=== PATIENT | female | born 2005 | race Two or more races ===

== ENCOUNTER 2024-04-05 17:36 | Emergency (ER) | payer MEDICAID, SELFPAY ==
[2024-04-05 17:37] VITALS: BMI 29.2
[2024-04-05 17:50] VITALS: BP 111/73; PULSE 98; RESP 18; TEMP 36.9; O2SAT 99
--- NOTE | 2024-04-05 18:10 | XR_ITS ---
Examination: PA lateral chest 2 views Technique: Upright PA lateral chest 2 views Exam date and time: April 05, 2024 1822 hrs. Indications: Left-sided chest pain beginning 2 weeks ago. Findings: Normal heart size No pneumonia or pulmonary edema. The osseous structures are intact Impression: No active disease
--- NOTE | 2024-04-05 18:10 | EDNOTE_ITS ---
Upper Respiratory Inf. RME/HPI General Chief Complaint: Flu Like Symptoms Stated Complaint: CONGESTION & GENERALIZED BODY ACHES X3 DAYS Time Seen by Provider: 04/05/24 18:03 Source: patient Arrival date/time: 04/05/24 17:36 18-year-old female no past medical history other than allergies to penicillins presents emergency department complaining of nasal congestion, cough, sore throat, and generalized bodyaches that actually have been ongoing for over a week. Mode of arrival: ambulatory Limitations: no limitations Related Data Previous Rx's ?Medication ?Instructions ?Recorded naproxen 500 mg tablet (Naprosyn) 500 mg PO BID PRN pa in #30 tabs 01/16/22 ibuprofen 600 mg tablet 600 mg PO Q8H PRN pain #20 t abs 04/05/24 Allergies Allergy/AdvReac Type Severity Reaction Status Date / Time No Known Allergies Allergy Verified 04/05/24 17:40 Review of Systems Review of Systems Systems Reviewed: All systems reviewed, normal except as documented Constitutional Constitutional: Reports system reviewed and no additional complaints, except as documented, Reports body ache(s), Denies chills and Denies fever(s) Eyes Eyes: Reports system reviewed and no additional complaints, except as documented and Denies change in vision ENT Ears, Nose, Mouth, and Throat: Reports system reviewed and no additional complaints, except as documented, Denies disequilibrium, Denies dizziness, Reports nasal congestion, Reports sore throat and Denies vertigo Cardiovascular Cardiovascular: Reports system reviewed and no additional complaints, except as documented, Denies chest pain and Denies dyspnea Respiratory Respiratory: Reports system reviewed and no additional complaints, except as documented, Denies chest congestion, Reports cough and Denies dyspnea Gastrointestinal Gastrointestinal: Reports system reviewed and no additional complaints, except as documented, Denies abdominal pain, Denies nausea and Denies vomiting Musculoskeletal Musculoskeletal: Reports system reviewed and no additional complaints, except as documented, Denies abnormal gait and Denies arthralgias Integumentary/Breasts Skin/Breast: Reports system reviewed and no additional complaints, except as documented, Denies erythema, Denies rash and Denies wounds Neurologic Neurologic: Reports system reviewed and no additional complaints, except as documented, Denies abnormal gait, Denies disequilibrium, Denies dizziness and Denies vertigo Past Medical History Social History SMOKING STATUS: Never smoker ED Exam General Limitations: Present no limitations General appearance: Present alert and in no apparent distress Head Head exam: Present atraumatic Eye Eye exam: Present normal appearance, PERRL and EOMI ENT ENT exam: Present normal exam, normal oropharynx and mucous membranes moist Expanded ENT Exam Throat exam: Present tonsillar erythema; Absent tonsillomegaly, tonsillar exudate or muffled voice Neck Neck exam: Present normal inspection, full ROM and trachea midline Chest Chest inspection: Present normal inspection and symmetric chest wall rise Respiratory Respiratory exam: Present normal lung sounds bilaterally Cardiovascular Cardiovascular exam: Present regular rate, normal rhythm and normal heart sounds Abdominal Exam Abdominal exam: Present soft and normal bowel sounds Extremities Exam Extremities exam: Present normal inspection and full ROM Back Exam Back exam: Present normal inspection and full ROM Neurological Exam Neurological exam: Present alert, oriented X3 and CN II-XII intact Psychiatric Psychiatric exam: Present normal affect and normal mood Skin Skin exam: Present warm, dry, intact and normal color Course Quality Measures none Orders Category Date Time Status Bedside Influenza A&B Antigen Test NOW Care 04/05/24 18:10 Completed XR chest 2V Stat Exams 04/05/24 18:10 Completed Strep A Rapid Stat Lab 04/05/24 18:15 Completed Vital Signs Vital signs: Vital Signs Temperature 98.5 F 04/05/24 17:50 Pulse Rate 98 04/05/24 17:50 Respiratory Rate 18 04/05/24 17:50 Blood Pressure 111/73 04/05/24 17:50 Pulse Oximetry (%) 99 04/05/24 17:50 Oxygen Delivery Method Room Air 04/05/24 17:50 99% room air within normal limits Upper Respiratory Infection MDM Narrative MDM Narrative:: 18-year-old female no past medical history other than allergies to penicillins presents emergency department complaining of nasal congestion, cough, sore throat, and generalized bodyaches that actually have been ongoing for over a week. Patient appears nontoxic and is hemodynamically stable. Chest x-ray was unremarkable for any pneumonic infiltrates. Strep and influenza swabs negative. Patient abdomen is soft and nontender. Patient likely has viral infection. Patient stable for discharge. Patient data External records reviewed:: [facility] previous records Clinical information provided by:: patient Social determinants that could affect healthcare access:: none Patient has the following chronic illnesses:: None How is presenting disease/condition affected by chronic disease/condition?: no chronic disease Evaluation data The following diagnostics were reviewed and interpreted by me:: lab results and radiology exam(s) Lab and/or radiology exams considered but not ordered:: Ordered Interpretation Summary: Interpreted by me Medications / Prescriptions Medications or Prescriptions considered but not ordered:: N/A Medication administrations:: N/A Consultations Consultation(s) initiated? (list below): No Diagnosis Upper Respiratory Differential Diagnosis: upper respiratory infection, otitis media, sinusitis, viral infection, bronchitis, influenza and pharyngitis Most likely diagnosis given after review of the tests above:: Viral infection Admission Indicated Admission indicated?: not indicated Admission Request Was there a request for admission?: No Disposition Plan Disposition Plan: Discharge Discharge Attestation Discharge Attestation: The patient and all family members were given an opportunity to ask questions and understood the discharge instructions. Discharge instructions specifically effects, indications for sooner follow up or return to the emergency department, and the expected course of current diagnosis. Patient condition: Stable Discharge Plan Plan Patient Disposition: HOME (Self Care) Disposition Comment: Stable Prescriptions/Referrals Prescriptions/Med Rec: New ibuprofen 600 mg tablet 600 mg PO Q8H PRN (Reason: pain) Qty: 20 0RF No Action naproxen [Naprosyn] 500 mg tablet 500 mg PO BID PRN (Reason: pain) Qty: 30 0RF Referrals: No Primary/Family,Physician [Primary Care Provider] - In 1 week Problem List Clinical Impression: Viral infection Patient/Caregiver Discharge Instructions Discharge Activity: activity as tolerated Education Materials: ED Viral Syndrome (Adult) Additional Instructions: Drink plenty fluids and get plenty of rest. Take Tylenol or ibuprofen as needed for fever or pain. Follow-up with primary care provider in 2 to 3 days. Return to emergency department for any worsening symptoms or as needed Print Language: Turkmen Stand Alone Forms: Giovanna Award Info., Work/School Release, Patient Portal Info Letter PA/BELKYS Supervising Physician PA/BELKYS Supervising Physician: Dr. Sexton
[2024-04-05 18:46] LABS: Strep A Rapid Negative (Negative)
== END 2024-04-05 20:17 | disposition home or self-care (01) ==
PROVIDERS: Emergency Provider Emergency Medicine
DX: B34.9 Viral infection, unspecified (principal); R07.89 Other chest pain
CPT/HCPCS: 71046; 87400; 87651; 99283

== ENCOUNTER 2024-05-01 13:26 | Emergency (ER) | payer MEDICAID, SELFPAY ==
[2024-05-01 13:40] VITALS: BP 93/57; PULSE 84; RESP 18; TEMP 37.1; O2SAT 99
--- NOTE | 2024-05-01 13:58 | XR_ITS ---
Examination: Abdomen AP single view Technique: AP portable supine abdomen, single view Exam date and time: 05/01/2024, 2 6:00 PM INDICATION: Abdominal pain. COMPARISON: None. FINDINGS: Nondilated nonobstructed bowel gas pattern. No free air. No solid masses or calcification seen. Diffuse fecal material in the colon IMPRESSION: Nonobstructed nondilated bowel gas pattern. Diffuse fecal material in the colon.
--- NOTE | 2024-05-01 14:13 | PD.EDSKIN ---
ED Skin Abcess FB-RME/HPI General Chief complaint: Skin/Abscess/Foreign Body Stated complaint: PAINFUL PIMPLE ON BUTT Time Seen by Provider: 05/01/24 13:41 Arrival date/time: 05/01/24 13:26 This is a 19-year-old female that complains of some redness to her buttock area. Patient states that she has not had a bowel movement in 3 weeks. Patient denies any fever or chills. Patient denies any past medical history. Related Data Previous Rx's ?Medication ?Instructions ?Recorded naproxen 500 mg tablet (Naprosyn) 500 mg PO BID PRN pain #30 tabs 01/16/22 ibuprofen 600 mg tablet 600 mg PO Q8H PRN pain #20 tabs 04/05/24 cephalexin 500 mg capsule 500 mg PO Q6H 7 days #28 caps 05/01/24 doxycycline hyclate 100 mg tablet 100 mg PO BID #14 tabs 05/01/24 ibuprofen 800 mg tablet 800 mg PO Q6H PRN pain #14 tabs 05/01/24 sennosides 8.6 mg-docusate sodium 1 tab-cap PO BID #20 tabs 05/01/24 50 mg tablet (Senna Plus) Allergies Allergy/AdvReac Type Severity Reaction Status Date / Time No Known Allergies Allergy Verified 05/01/24 13:29 Course Orders Category Date Time Status KUB [XR abdomen 1V] Stat Exams 05/01/24 13:58 Completed CBC Stat Lab 05/01/24 14:53 Completed Comprehensive Metabolic Panel Stat Lab 05/01/24 14:53 Completed HCG Qualitative,Urine Stat Lab 05/01/24 16:47 Completed Urinalysis, C/S if Indicated Stat Lab 05/01/24 16:47 Completed Urine Culture Stat Lab 05/01/24 18:25 Ordered Acetaminophen Tab [Tylenol ES Tab] Med 05/01/24 14:02 Discontinued 1,000 mg PO X1 ONE HYDROcodone*/APAP 5/325 [Elizabeth 5/325] Med 05/01/24 18:23 Discontinued 1 tab PO X1 ONE Ibuprofen Tab [Motrin Tab] Med 05/01/24 14:02 Discontinued 800 mg PO X1 ONE Lactulose Syrup [Enulose Syrup] Med 05/01/24 18:22 Discontinued 20 gm PO X1 ONE cefTRIAXone [Rocephin] 1,000 mg Med 05/01/24 18:22 Discontinued Lidocaine 1% 20 ml [Xylocaine 1% 20 ML] 2.1 ml IM X1 Vital Signs Vital signs: Vital Signs Temperature 98.7 F 05/01/24 13:40 Pulse Rate 84 05/01/24 13:40 Respiratory Rate 18 05/01/24 13:40 Blood Pressure 93/57 L 05/01/24 13:40 Pulse Oximetry (%) 99 05/01/24 13:40 Oxygen Delivery Method Room Air 05/01/24 13:40 Skin / Abscess / Foreign Body MDM Narrative MDM Narrative:: Labs reviewed white count 11.9 otherwise unremarkable. BMP unremarkable. Urine shows leukocyte Estrace RBCs, white blood cells,. Will send for urine culture. Pt has early abscess, no palpable fluctuance. Nothing to I&D. I spoke to patient at length that this can be a pilonidal cyst versus early abcess. Instructed patient to use warm compresses every 4 hours. Patient also very constipated. I gave her a dose of lactulose. Patient will also be sent home with Martine to take twice a day. Medications / Prescriptions Medication administrations:: Medication Administration History Discontinued Medications Acetaminophen (Acetaminophen 500 Mg Tablet) 1,000 mg PO X1 ONE Stop: 05/01/24 14:03 Last Admin: 05/01/24 15:38 Dose: 1,000 mg Documented By: LESLY Hydrocodone Bitart/Acetaminophen (Hydrocodone/Apap 5/325 Tablet) 1 tab PO X1 ONE Stop: 05/01/24 18:24 Ceftriaxone Sodium 1,000 mg/ (Lidocaine HCl 2.1 ml) 0 mg IM X1 ONE Stop: 05/01/24 18:23 Ibuprofen (Ibuprofen Tab 400 Mg Tablet) 800 mg PO X1 ONE Stop: 05/01/24 14:03 Last Admin: 05/01/24 15:38 Dose: 800 mg Documented By: LESLY Lactulose (Lactulose Syrup 20 Gm/30 Ml Udc) 20 gm PO X1 ONE; Protocol Stop: 05/01/24 18:23 Discharge Plan Plan Patient Disposition: HOME (Self Care) Patient condition on transfer: Stable Prescriptions/Referrals Prescriptions/Med Rec: New doxycycline hyclate 100 mg tablet 100 mg PO BID Qty: 14 0RF cephalexin 500 mg capsule 500 mg PO Q6H 7 Days Qty: 28 0RF ibuprofen 800 mg tablet 800 mg PO Q6H PRN (Reason: pain) Qty: 14 0RF sennosides-docusate sodium [Senna Plus] 8.6-50 mg tablet 1 tab-cap PO BID Qty: 20 0RF No Action naproxen [Naprosyn] 500 mg tablet 500 mg PO BID PRN (Reason: pain) Qty: 30 0RF ibuprofen 600 mg tablet 600 mg PO Q8H PRN (Reason: pain) Qty: 20 0RF Referrals: No Primary/Family,Physician [Primary Care Provider] - In 1 week Problem List Clinical Impression: Cellulitis, UTI (urinary tract infection), Constipation Patient/Caregiver Discharge Instructions Discharge Activity: activity as tolerated Education Materials: ED Cellulitis, ED CYSTITIS Female Adult Additional Instructions: Follow up with primary provider in 1-2 days. Come back to ED if symptoms change or worsen. Follow-up with urine culture. Print Language: Czech Stand Alone Forms: Giovanna Award Info., Patient Portal Info Letter PA/COMPLETIONS ENGINEER Supervising Physician PA/COMPLETIONS ENGINEER Supervising Physician: bernice
[2024-05-01 15:18] LABS: Basophils % (Auto) 0 % (0-2.5); Eosinophils # (Auto) 0.1 Thou/mm3 (0.0-0.5); Eosinophils % (Auto) 1 % (0-10); Hematocrit 35.6 % (36.0-46.0); Hemoglobin 11.9 g/dL (12.0-16.0); Immature Granulocytes % (Auto) 0 % (0-0); Immature Granulocytes Auto 0.03 Thou/mm3 (0.00-0.00); Lymphocytes % (Auto) 17 % (10-50); Mean Corpuscular HGB Conc 33.4 g/dl (31.0-37.0); Mean Corpuscular Hemoglobin 29.6 pg (25.0-35.0); Mean Corpuscular Volume 89 fL (80-100); Monocytes # (Auto) 1.1 Thou/mm3 (0.0-0.8); Monocytes % (Auto) 10 % (0-12); Neutrophils # (Auto) 8.7 Thou/mm3 (1.8-7.7); Neutrophils % (Auto) 73 % (37-80); Nucleated Red Blood Cell % 0 /100 WBC (0); Platelet Count 242 Thou/mm3 (140-440); RDW Standard Deviation 42.7 fL (36.4-46.3); Red Blood Count 4.02 Miln/mm3 (4.00-5.20); White Blood Count 11.9 Thou/mm3 (3.6-11.0)
[2024-05-01 15:31] LABS: Alanine Aminotransferase 10 U/L (10-49); Albumin, Serum 4.4 gm/dL (3.5-5.0); Albumin/Globulin Ratio 1.6 (1.2-2.2); Alkaline Phosphatase 69 U/L (46-116); Anion Gap 9 (7-16); Aspartate Amino Transferase 12 U/L (0-34); BUN/Creatinine Ratio 14 Ratio (12-20); Bilirubin,Total 0.4 mg/dL (0.3-1.2); Blood Urea Nitrogen 10 mg/dL (9-23); Calcium 9.4 mg/dL (8.3-10.6); Calcium (Corrected) 9.4 mg/dL (8.5-10.1); Carbon Dioxide 25.5 mMol/L (20.0-31.0); Chloride 106 mMol/L (98-107); Creatinine (Component) 0.7 mg/dL (0.6-1.3); Globulin 2.7 gm/dL (2.3-3.5); Glucose 99 mg/dL (74-106); Osmolality,Calculated 278 (275-295); Potassium 3.8 mMol/L (3.4-5.1); Sodium 140 mMol/L (136-145); Total Protein 7.1 gm/dL (5.7-8.2); eGFR > 60 See Note
[2024-05-01] MEDS: IBUPROFEN TAB 400 MG TABLET 800 MG PO (15:38)
[2024-05-01] MEDS: ACETAMINOPHEN 500 MG TABLET 1000 MG PO (15:38)
[2024-05-01 17:00] LABS: Collection Type, Urine Voided
[2024-05-01 17:09] LABS: Amorphous Crystals,Urine Present (Absent); Bilirubin,Urine Negative (Negative); Blood,Urine 1+ (Negative); Color,Urine Yellow (Lt Yel-Yel); Culture Indicated,Urine Not Indicated; Glucose, Urine Negative (Negative); Ketones,Urine Negative (Negative); Leukocyte Esterase,Urine Positive (Negative); Nitrite,Urine Negative (Negative); Protein,Urine Negative (Neg - Trace); RBC,Urine 14 /hpf (0-3); Specific Gravity,Urine 1.021 (1.001-1.035); Squamous Epithelial Cell,Urine 9 /hpf (0-5); Urobilinogen,Urine Negative mg/dL (0.0-1.0); WBC,Urine 2 /hpf (0-5)
[2024-05-01 17:15] LABS: HCG Qualitative,Urine Negative
[2024-05-01 17:19] LABS: Clarity,Urine Turbid (Clear/Hazy)
[2024-05-01] MEDS: HYDROcodone/APAP 5/325 TABLET 1 TAB PO (19:01)
[2024-05-01] MEDS: LACTULOSE SYRUP 20 GM/30 ML UDC PO (19:03)
--- NOTE | 2024-05-01 19:10 | PD.EDADDENDU ---
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
[2024-05-01] MEDS: DOXYCYCLINE 100 MG TABLET PO (19:19)
== END 2024-05-01 19:26 | disposition home or self-care (01) ==
PROVIDERS: Nurse Practitioner Family; Emergency Provider Family Medicine
DX: L03.317 Cellulitis of buttock (principal); N39.0 Urinary tract infection, site not specified; K59.00 Constipation, unspecified
CPT/HCPCS: 36415; 74018; 80053; 81001; 81025; 85025; 87086; 99283; A9270

== ENCOUNTER 2024-05-03 22:06 | Emergency (ER) | payer MEDICAID, SELFPAY ==
[2024-05-03 22:06] VITALS: BMI 23.8
[2024-05-03 23:37] VITALS: BP 113/77; PULSE 80; RESP 18; TEMP 37.4; O2SAT 95
[2024-05-03 23:38] VITALS: BP 112/72; PULSE 92; RESP 18; TEMP 36.8; O2SAT 99
--- NOTE | 2024-05-04 02:49 | PD.EDSKIN ---
ED Skin Abcess FB-RME/HPI General Chief complaint: Skin/Abscess/Foreign Body Stated complaint: ABSCESS ON BUTT Time Seen by Provider: 05/03/24 23:53 Arrival date/time: 05/03/24 22:06 Related Data Previous Rx's ?Medication ?Instructions ?Recorded naproxen 500 mg tablet (Naprosyn) 500 mg PO BID PRN pain #30 tabs 01/16/22 ibuprofen 600 mg tablet 600 mg PO Q8H PRN pain #20 tabs 04/05/24 doxycycline hyclate 100 mg tablet 100 mg PO BID #14 tabs 05/01/24 ibuprofen 800 mg tablet 800 mg PO Q6H PRN pain #14 tabs 05/01/24 sennosides 8.6 mg-docusate sodium 1 tab-cap PO BID #20 tabs 05/01/24 50 mg tablet (Senna Plus) sulfamethoxazole 400 1 tab PO BID 10 days #20 tabs 05/04/24 mg-trimethoprim 80 mg tablet (Bactrim) Allergies Allergy/AdvReac Type Severity Reaction Status Date / Time Penicillins Allergy Severe Hives Verified 05/01/24 19:11 Course Orders Category Date Time Status Ketorolac Inj [Toradol Inj] Med 05/04/24 02:44 Once 30 mg IM X1 ONE Tetanus, Diphtheria Toxoids/Pf [Tenivac-Adult] Med 05/04/24 02:44 Once 0.5 ml IMI .ONCE ONE Trimethoprim/Sulfa 160/800 Ds [Bactrim Ds] Med 05/04/24 02:45 Once 1 tab PO X1 ONE Vital Signs Vital signs: Vital Signs Temperature 99.3 F 05/03/24 23:37 Pulse Rate 80 05/03/24 23:37 Respiratory Rate 18 05/03/24 23:37 Blood Pressure 113/77 05/03/24 23:37 Pulse Oximetry (%) 95 05/03/24 23:37 Oxygen Delivery Method Room Air 05/03/24 23:37 Skin / Abscess / Foreign Body Medications / Prescriptions Medication administrations:: Medication Administration History Ketorolac Tromethamine (Ketorolac Inj 60 Mg/2 Ml Vial) 30 mg IM X1 ONE Stop: 05/04/24 02:45 Tetanus/Diphtheria Toxoids (Tetanus,Diphtheria Toxoids/Pf (Adult) 0.5 Ml Syringe) 0.5 ml IMi .ONCE ONE Stop: 05/04/24 02:45 Trimethoprim/Sulfamethoxazole (Trimethoprim/Sulfa 160/800 Ds Tablet) 1 tab PO X1 ONE Stop: 05/04/24 02:46 Discharge Plan Plan Patient Disposition: HOME (Self Care) Disposition Comment: stable Prescriptions/Referrals Prescriptions/Med Rec: New sulfamethoxazole-trimethoprim [Bactrim] 400-80 mg tablet 1 tab PO BID 10 Days Qty: 20 0RF No Action naproxen [Naprosyn] 500 mg tablet 500 mg PO BID PRN (Reason: pain) Qty: 30 0RF ibuprofen 600 mg tablet 600 mg PO Q8H PRN (Reason: pain) Qty: 20 0RF doxycycline hyclate 100 mg tablet 100 mg PO BID Qty: 14 0RF ibuprofen 800 mg tablet 800 mg PO Q6H PRN (Reason: pain) Qty: 14 0RF sennosides-docusate sodium [Senna Plus] 8.6-50 mg tablet 1 tab-cap PO BID Qty: 20 0RF Referrals: Luis Alberto Posada PA-C [Primary Care Provider] - In 1 week Problem List Clinical Impression: Cellulitis Patient/Caregiver Discharge Instructions Other Activity Instructions:: Take Bactrim twice daily in addition to Keflex for cellulitis. Continue to monitor lesion for increased warmth, redness, pain, purulent discharge. Do not soak in water or bath below the waist. Keep area clean and dry and you may use triple antibiotic ointment surrounding your abscess. Follow-up with primary care within the next week for wound check. Return to the ED if your symptoms worsen or change. Education Materials: ED Cellulitis Print Language: French Stand Alone Forms: Giovanna Award Info., Patient Portal Info Letter PA/ACCOUNT REVIEW SPECIALIST Supervising Physician PA/ACCOUNT REVIEW SPECIALIST Supervising Physician: Dr. rhodes
[2024-05-04] MEDS: KETOROLAC INJ 60 MG/2 ML VIAL 30 MG IM (03:13)
[2024-05-04] MEDS: TETANUS,DIPHTHERIA TOXOIDS/PF (ADULT) 0.5 ML SYRINGE IMi (03:14)
[2024-05-04] MEDS: TRIMETHOPRIM/SULFA 160/800 DS TABLET 1 TAB PO (03:15)
== END 2024-05-04 04:00 | disposition home or self-care (01) ==
PROVIDERS: Emergency Provider Emergency Medicine; PCP Physician Assistant
DX: L03.317 Cellulitis of buttock (principal); Z23 Encounter for immunization
CPT/HCPCS: 90471; 90714; 96372; 99283; J1885; A9270